=== PATIENT | female | born 1965 | race Caucasian/White ===

== ENCOUNTER → 2016-05-23 | Outpatient (CLI) | payer MEDICARE, OTHER ==
[~2016-05-23] MED LIST: ABILIFY15 MG PO; ALL DAY ALLERGY10 M3 PO; BUPROPION HCL150 M1 PO; DIABETA 5 MG TAB5 MG PO; DULOXETINE HCL30 MG PO; DULOXETINE HCL60 MG PO; FENOFIBRATE145 MG PO; GLUCOPHAGE 500500 MG PO; INVOKANA300 MG PO; LEVEMIR FL100 UNIT/1 SQ; LISINOPRIL10 MG PO; LORTAB 5-325 M1 EACH PO; LYRICA150 MG PO; METOPROLOL TART25 MG PO; NITROSTAT0.4 MG SL; PANTOPRAZOLE SO40 MG PO
[2016-05-23 08:54] LABS: BUN/CREATININE RATIO 23 (0-10)
== END ==
LOC: LAB 08:14
PROVIDERS: Family Medicine
DX: E11.65 Type 2 diabetes mellitus with hyperglycemia (principal); E78.5 Hyperlipidemia, unspecified; I10 Essential (primary) hypertension; J30.9 Allergic rhinitis, unspecified; M19.90 Unspecified osteoarthritis, unspecified site; R07.89 Other chest pain; Z68.41 Body mass index [BMI] 40.0-44.9, adult
CPT/HCPCS: 36415; 80048; 80061; 80076; 83036

== ENCOUNTER 2016-06-05 13:41 | Observation (INO) | payer MEDICARE, OTHER ==
[~2016-06-05] VITALS: Ht 162.6 cm; Wt 108.4 kg
[2016-06-05 14:15] LABS: HEMOGLOBIN 13.6 gm/dl (12.3-15.3); RED BLOOD COUNT 4.58 M/UL (4.00-5.10)
[2016-06-06] MEDS ORDERED: ALL DAY ALLERGY10 M3 PO (00:18)
[2016-06-06] MEDS ORDERED: DIABETA 5 MG TAB5 MG PO (00:19)
[2016-06-06] MEDS ORDERED: GLUCOPHAGE 500500 MG PO (00:20)
[2016-06-06] MEDS ORDERED: METOPROLOL TART25 MG PO (00:21)
[2016-06-06] MEDS ORDERED: DULOXETINE HCL30 MG PO (00:22)
[2016-06-06] MEDS ORDERED: LORTAB 5-325 M1 EACH PO (00:23)
[2016-06-06] MEDS ORDERED: BUPROPION HCL150 M1 PO (00:25)
[2016-06-06] MEDS ORDERED: DULOXETINE HCL60 MG PO (00:26)
[2016-06-06] MEDS ORDERED: ABILIFY15 MG PO (00:26)
[2016-06-06] MEDS ORDERED: FENOFIBRATE145 MG PO (00:27)
[2016-06-06] MEDS ORDERED: LISINOPRIL10 MG PO (00:27)
[2016-06-06] MEDS ORDERED: PANTOPRAZOLE SO40 MG PO (00:28)
[2016-06-06] MEDS ORDERED: NITROSTAT0.4 MG SL (00:30)
[2016-06-06] MEDS ORDERED: INVOKANA300 MG PO (00:30)
[2016-06-06] MEDS ORDERED: LEVEMIR FL100 UNIT/1 SQ (00:31)
[2016-06-06] MEDS ORDERED: LYRICA150 MG PO (00:32)
== END 2016-06-06 16:00 | disposition home or self-care (01) ==
LOC: ER1 13:41 → ZEROF 16:09 → M/S 20:52
PROVIDERS: Emergency Medicine; ADMIT Family Medicine
DX: R07.89 Other chest pain (principal); I10 Essential (primary) hypertension; E78.5 Hyperlipidemia, unspecified; M51.36 Other intervertebral disc degeneration, lumbar region; M19.90 Unspecified osteoarthritis, unspecified site; E11.40 Type 2 diabetes mellitus with diabetic neuropathy, unspecified; G25.81 Restless legs syndrome; Z90.710 Acquired absence of both cervix and uterus; Z90.49 Acquired absence of other specified parts of digestive tract; Z88.8 Allergy status to other drugs, medicaments and biological substances; Z82.49 Family history of ischemic heart disease and other diseases of the circulatory system; Z83.3 Family history of diabetes mellitus
CPT/HCPCS: 36415; 71010; 78452; 80048; 80053; 80061; 82550; 82553; 82962; 83874; 84484; 85025; 93005; 93017; 99285; A9502; G0378; J2785

== ENCOUNTER → 2020-05-16 | Outpatient (CLI) | payer OTHER ==
[~2020-05-16] MED LIST changes: +ACTOS30 MG PO; +AMLODIPINE BESYL5 MG PO; +CENTURY ULTIMA1 EAC2 PO; +COLCHICINE 0.60.6 MG PO; +DICLOFENAC SOD100 GM TOP; +ECOTRIN325 MG PO; +ELAVIL 10 MG TA10 MG PO; +FAMOTIDINE20 MG PO; +FLEXERIL 10 MG10 MG PO; +FLONASE 0.05% N16 GM; +GLYBURIDE-METF1 EAC1 PO; +HYDROCODON-ACE1 EAC6 PO; +JARDIANCE25 MG PO; +LAMICTAL200 MG PO; +LIPITOR TAB 1010 MG PO; -LORTAB 5-325 M1 EACH PO; +NICOTINE PATCH1 EAC2 TOP; +NORVASC 5 MG TAB5 MG PO; +NOVOLOG 10100 UNITS/ INJ; +NOVOLOG MI100 UNIT/1 SC; +VICTOZA 1818 MG/3 ML SC; +VISTARIL25 MG PO; +VOLTAREN; +VRAYLAR PO; +XYZAL5 MG PO; +ZANAFLEX4 MG PO; +ZYLOPRIM 300 M300 MG PO; +ZYRTEC10 MG PO
== END ==
LOC: HEART 5 11:03
DX: K58.9 Irritable bowel syndrome, unspecified (principal)
CPT/HCPCS: 94010

== ENCOUNTER 2021-02-14 16:25 | Emergency (ER) | payer OTHER | END 2021-02-14 20:20 | disposition home or self-care (01) | LOC: ER1 16:25 | DX: S92.901A Unspecified fracture of right foot, initial encounter for closed fracture (principal); F17.210 Nicotine dependence, cigarettes, uncomplicated; I51.9 Heart disease, unspecified; I25.2 Old myocardial infarction; Z88.8 Allergy status to other drugs, medicaments and biological substances; W19.XXXA Unspecified fall, initial encounter | CPT/HCPCS: 73630; 99283 ==

== ENCOUNTER → 2021-03-04 | Outpatient (CLI) | payer OTHER | LOC: KOH-I 09:28 | DX: S92.321A Displaced fracture of second metatarsal bone, right foot, initial encounter for closed fracture (principal) | CPT/HCPCS: 73630 ==

== ENCOUNTER → 2021-03-25 | Outpatient (CLI) | payer OTHER | LOC: KOH-I 09:25 | DX: S92.321D Displaced fracture of second metatarsal bone, right foot, subsequent encounter for fracture with routine healing (principal) | CPT/HCPCS: 73630 ==

== ENCOUNTER → 2021-04-25 | Outpatient (CLI) | payer OTHER | LOC: KOH-I 09:43 | DX: S92.321A Displaced fracture of second metatarsal bone, right foot, initial encounter for closed fracture (principal) | CPT/HCPCS: 73630 ==

== ENCOUNTER → 2021-05-23 | Outpatient (CLI) | payer OTHER | LOC: KOH-I 09:37 | DX: S92.321A Displaced fracture of second metatarsal bone, right foot, initial encounter for closed fracture (principal) | CPT/HCPCS: 73630 ==

== ENCOUNTER → 2021-06-06 | Outpatient (CLI) | payer OTHER | LOC: MAMO 05-24 11:00 | DX: Z12.31 Encounter for screening mammogram for malignant neoplasm of breast (principal) | CPT/HCPCS: 77063; 77067 ==

== ENCOUNTER → 2021-07-22 | Outpatient (CLI) | payer OTHER | LOC: KOH-I 09:58 | DX: S92.321D Displaced fracture of second metatarsal bone, right foot, subsequent encounter for fracture with routine healing (principal) | CPT/HCPCS: 73630 ==

== ENCOUNTER → 2021-09-13 | Outpatient (CLI) | payer OTHER | LOC: CT 07:39 | DX: R51.9 Headache, unspecified (principal); R09.89 Other specified symptoms and signs involving the circulatory and respiratory systems | CPT/HCPCS: 70486 ==